=== PATIENT | female | born 1950 | race Caucasian/White ===

== ENCOUNTER 2021-05-22 10:09 | Day surgery (SDC) | payer MEDICARE ==
[~2021-05-22] VITALS: Ht 149.9 cm; Wt 53.5 kg
[~2021-05-22 10:09] MED LIST: ALBUTEROL SULFATE 2.5 MG/0.5 ML INH NEB SOLN INH ONE; ATOR80TA59 PO; BAYE325T12 PO; FURO40TA2 PO; GABA-1171 PO; HYDR-3713 PO; KETOROLAC 60MG 2ML VIAL As Ordered ONE; LEVE1INJ5 SC; LEVO112T2 PO; LIDOCAINE 2% 100MG/5ML SDV (FOR ANES.) As Ordered ONE; LIDOCAINE 4% INJ 5ML AMP INH ONE; LISI10TA22 PO; LOPI600T PO; LR 1,000 ML IV ONE; METO1TAB87 PO; MIDAZOLAM INJ 2MG/2ML VIAL (J2250 PER 1MG) As Ordered ONE; NITR0.4D6 TD; NITR0.4S14 SL; NOVOINJ3 SC; OMEP-218 PO; ONDANSETRON 4MG/2ML VIAL As Ordered ONE; POTA1TAB14 PO; ROCURONIUM BROMIDE 50 MG/5 ML VIAL As Ordered ONE; SUGAMMADEX SODIUM 500 MG/5 ML VIAL (BRIDION) As Ordered ONE; TREL1AER INH; dexameTHASONE 4 MG/ML 1ML VIAL (J1100 PER 1MG) As Ordered ONE; fentaNYL 100 MCG/2 ML INJECTION (J3010) As Ordered ONE; propofoL 200 MG/20 ML VIAL As Ordered ONE
[2021-05-22] MEDS ORDERED: CETACAINE SPRAY 5GM As Ordered ONE (10:35)
[2021-05-22] MEDS ORDERED: EPINEPHrine 1MG/10ML SYRINGE 1.5IN As Ordered ONE ×2 (10:35→10:54)
[2021-05-22] MEDS ORDERED: fentaNYL 100 MCG/2 ML INJECTION (J3010) IV PRN (12:45)
[2021-05-22] MEDS ORDERED: ONDANSETRON 4MG/2ML VIAL IV PRN (12:45)
[2021-05-22] MEDS ORDERED: oxyCODONE 5MG TAB PO PRN (12:45)
[2021-05-22] MEDS ORDERED: LR 1,000 ML IV SCH (12:45)
[2021-05-22] MEDS ORDERED: HYDROMORPHONE HCL 0.5 MG/ 0.5 ML SYRINGE (J1170 PER 1) IV PRN (12:45)
--- NOTE | 2021-05-22 12:56 | REP ---
INDICATION: S/P BRONCHOSCOPY COMPARISON: None. TECHNIQUE: Portable AP view of the chest FINDINGS: Cardiomegaly is appreciated with prior sternotomy, CABG, aortic valve repair and dual lead pacemaker. Loop recorder noted overlying the cardiac silhouette. The lung diana demonstrate diffuse chronic appearing interstitial changes without focal consolidation, effusion, or pneumothorax. The mass/consolidation in the periphery of the left lung identified on CT is poorly visualized by current x-ray IMPRESSION: No acute cardiopulmonary process appreciated. As above. <Electronically signed by Delvis Samson > 05/22/21 2217
--- NOTE | 2021-05-22 13:04 | REP ---
INDICATION: LEFT UPPER LOBE ABNORMALITY. COMPARISON: Comparison chest CT study May 09, 2021.. TECHNIQUE: Three views. 5 minutes 39 seconds of fluoroscopy time is reported. FINDINGS: A sequence of 3 last image hold fluoroscopically obtained spot radiographs of the chest document bronchoscopic manipulation. IMPRESSION: Procedural imaging. <Electronically signed by Leonel Shay > 05/22/21 1300
--- NOTE | 2021-05-22 13:07 | RO ---
OPERATIVE NOTE DATE OF OPERATION: 05/22/2021 PREOPERATIVE DIAGNOSIS: Abnormal chest CT with left lingular upper lobe lesion. POSTOPERATIVE DIAGNOSIS: Abnormal chest CT with left lingular upper lobe lesion. PROCEDURE: Bronchoscopy with endobronchial ultrasound and robotic navigation. SURGEON: Rui Weaver DO, [facility] DESPATCH CLERK: Dr. [place] ANESTHESIA: General. FINDINGS: Smoker airway, mucous of the lingula. SPECIMENS OBTAINED: 1. Lingula left upper lobe transbronchial biopsies. 2. Lingula left upper lobe transbronchial biopsy for culture. 3. BAL lingula. ESTIMATED BLOOD LOSS: Less than 5 mL. DESCRIPTION OF PROCEDURE: Informed consent was reviewed with the patient in the preoperative area. She was brought back to OR #8 which is a premapped room. The patient was placed in supine position; anesthesia was initiated with an 8.5 endotracheal tube. The case was handed over to me. Time out was performed with two patient identifiers, identify correct site and correct procedure. Name and date of were correlated with a navigation [employer] platform along with the radiology films in the room. Cetacaine spray was used to anesthetize the airway and 1T190 bronchoscope was inserted. There were thin amounts of mucous in both airways. Trachea is midline. The willy is sharp. Right and left mainstem bronchi normal. RB1 through 10 was inspected without endobronchial lesions, minimal amounts of banding. LB1 through 10 was inspected. The lingula, especially the inferior segments, had significant amount of mucous, BAL was performed. After adequate BAL all areas were inspected and mucous secretions were cleared. Bronchoscope was removed. Robotic bronchoscopy was then inserted. Automatic registration was performed. The target in the lingula was then easily navigated until we were within 3 cm in front of the lesion. Radial endobronchial ultrasound was used to view the largest area. Biopsies were taken. Some biopsies were taken more inferior to the initial navigated area, it did not appear on cytology that this was as abnormal as the initial site. Therefore, we re-navigated to the initial target. After adequate sampling bronchoscope was removed. I then inserted the endobronchial ultrasound linear scope to view the mediastinum. There were no significant discrete nodules that were amenable to biopsy. I was viewing the left hilum, willy and pre-carinal areas. Therefore, no biopsies were obtained of the mediastinal or hilar adenopathy. The bronchoscope was removed. The patient was extubated and is in recovery. Postprocedure chest x-ray is pending. Post-procedure cxr showed no evidence of pneumothorax. [facility]
[2021-05-22 14:05] VITALS: BP 143/61
== END 2021-05-22 14:07 | disposition home or self-care (01) ==
LOC: M SDC 10:09
PROVIDERS: ATTEND Internal Medicine Pulmonary Disease
DX: R91.1 Solitary pulmonary nodule (principal); J44.9 Chronic obstructive pulmonary disease, unspecified; I25.10 Atherosclerotic heart disease of native coronary artery without angina pectoris; I10 Essential (primary) hypertension; E11.9 Type 2 diabetes mellitus without complications; K21.9 Gastro-esophageal reflux disease without esophagitis; E78.00 Pure hypercholesterolemia, unspecified; D50.9 Iron deficiency anemia, unspecified; E03.9 Hypothyroidism, unspecified; Z87.891 Personal history of nicotine dependence; Z79.4 Long term (current) use of insulin; Z92.21 Personal history of antineoplastic chemotherapy; Z85.51 Personal history of malignant neoplasm of bladder; I50.32 Chronic diastolic (congestive) heart failure; Z98.61 Coronary angioplasty status; Z95.0 Presence of cardiac pacemaker; Z95.1 Presence of aortocoronary bypass graft; Z79.82 Long term (current) use of aspirin; Z79.899 Other long term (current) drug therapy
CPT/HCPCS: 31624; 31628; 31652; 71045; 76000; 87070; 87102; 87116; 87186; 87205; 87206; 88108; 88305; 88312; 88313; J1100; J1885; J2250; J2405; J3010; S2900; U0002